=== PATIENT | female | born 1965 | race Caucasian/White ===

== ENCOUNTER → 2016-08-23 | Outpatient (CLI) | payer BC ==
[~2016-08-23] MED LIST: GADOBUTROL 10 ML VIAL IVP ONE
--- NOTE | 2016-08-25 10:50 | MR ---
MRI Lower Extremity, Right Knee Without and With Contrast. History: Pain in lateral compartment. History of medial unicompartmental arthroplasty. Technique: MRI was performed of the right knee using a 1.5 [employer] MRI system. Sagittal, coronal, and a xial imaging was obtained. Imaging sequences were tailored to help diminish metal susceptibility jasmin fact from the patient's known hardware. Images were obtained pre and post intravenous contrast, 7.5 m L Gadavist. Findings: Postsurgical changes are seen of a medial compartment arthroplasty. No evidence for adjacen t abnormal fluid collection or abnormal enhancement. Minimal bone marrow edema is seen in the medial tibial plateau which could be residual postsurgical or stress injury. No significant joint effusion. There is fraying at the free edge of the posterior horn lateral meniscus near the meniscal root and p ossible small undersurface partial tear on the T1-weighted imaging but not seen on the more fluid sen sitive sequences. Minimal cartilage signal abnormality is seen in the lateral compartment without att enuation. Mild cartilage signal abnormality is seen in the median ridge of the patella without signif icant attenuation. Quadriceps tendon and patellar tendon are unremarkable. Impression: 1. Postsurgical changes of a medial compartment arthroplasty without evidence for complication. Mild bone marrow edema in the proximal tibial metaphysis medially could be residual from prior surgery or mild stress-related response. 2. Fraying at the free edge posterior horn lateral meniscus near the meniscal root and possible small undersurface partial tear. 3. 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 4. Grade 1 chondromalacia medial facet patella.
== END ==
LOC: FIMAGING 12:14
PROVIDERS: ATTEND Orthopaedic Surgery Sports Medicine
DX: M25.561 Pain in right knee (principal); M22.41 Chondromalacia patellae, right knee; M23.251 Derangement of posterior horn of lateral meniscus due to old tear or injury, right knee
CPT/HCPCS: A9585